=== PATIENT | female | born 1985 | race African-American/Black ===

== ENCOUNTER 2017-03-16 23:53 | Emergency (ER) | payer OTHER ==
--- NOTE | ~2017-03-16 | CR127 ---
[facility] A Service of [facility] [place] RADIOLOGY TEXT RESULTS PATIENT: JAMMIE ROMAN LOCATION: [facility] : [birth year] UNIT #: [id number] AGE: [address]: Tayler Rodriguez MD SEX: F ORDER DR: [id number] [facility] [address] [place], [place] [address] [id number] MR#: [id number] Acc #: [id number] NAME: JAMMIE ROMAN : 1985 SEX: F STUDY DATE/TIME: 03/17/2017 00:46 UNIT: [facility] ROOM: STUDY DESCRIPTION: CR Foot Complete Min 3 View Rt Attending Physician: Tayler Rodriguez M.D. Ordering Physician: Ed Doctor [id number] [facility] Primary Care Physician: Primary Care Physician No MEDICAL IMAGING REPORT This report is preliminary unless electronic signature is present EXAM Right foot, 03/17 at 00:46 INDICATION Toe pain and soft tissue swelling for 1 day after a fall down stairs. COMPARISON None FINDINGS Three views of the right foot were obtained. There is a nondisplaced fracture of the first proximal phalanx extending from the diaphysis to at least the distal metaphysis. It is unclear if this extends into the articular surface. The rest of the foot is normal. IMPRESSION Nondisplaced oblique fracture of first proximal phalanx. It extends from the proximal diaphysis distally to the metaphysis. It does not definitively extend into the joint space. The rest of the foot is negative. Dictated by... Xavier Kimble Jr., M.D. THIS IS AN ELECTRONICALLY VERIFIED REPORT Xavier Kimble Jr., M.D. at 03/17/2017 9:52 PM LAURIE/minesh TD: 03/17/2017 08:11 JOB #: [id number] MEDICAL IMAGING REPORT Page 1 of 1 COPY
== END 2017-03-17 02:40 | disposition home or self-care (01) ==
LOC: CED 23:53
DX: O9A.211 Injury, poisoning and certain other consequences of external causes complicating pregnancy, first trimester (principal); S92.414A Nondisplaced fracture of proximal phalanx of right great toe, initial encounter for closed fracture; W01.0XXA Fall on same level from slipping, tripping and stumbling without subsequent striking against object, initial encounter; Y92.009 Unspecified place in unspecified non-institutional (private) residence as the place of occurrence of the external cause; F17.200 Nicotine dependence, unspecified, uncomplicated
CPT/HCPCS: 73630; 84703; 99283